=== PATIENT | female | born 1940 | race Caucasian/White ===

== ENCOUNTER 2018-07-22 11:47 | Emergency (ER) | payer MEDICARE ==
[2016-08-16 09:13] VITALS: Wt 81.6 kg
[2018-07-22] MEDS ORDERED: NS(*) 0.9% 1000 ML BAG 1,000 ML IV ONE (11:49)
--- NOTE | 2018-07-22 11:49 | ER Report ---
History and Physical Time Seen By MD: 11:42 HPI/ROS CHIEF COMPLAINT: N/V/D HISTORY OF PRESENT ILLNESS: History is primarily from EMT's as patient is minimally verbal. According to the who should be arriving soon patient has been having fever decreased appetite over the past week or so. Fever began around 7 AM this morning and was followed by 2 episodes of vomiting during which one of the episodes the patient had a brief syncopal episode. She arrives to the emergency department awake and conscious with stable vital signs. Blood sugar in the field was 186 mg/dL. The electronic medical record as of 2013 shows the patient is a full code. Patient apparently is prone to urinary tract infections and is bedridden secondary to Parkinson's disease. Patient's has arrived and additional history is been taken. The actual onset of symptoms was 7 AM this morning. Patient admitted doing well at baseline until then. reports that her normal activities that she is bedridden and requires at least to lift out of bed. She does have some strength to her upper extremities but is primarily verbal. Since 7 AM she is became essentially nonverbal. She will follow some commands and say yes or no but that is about it.. Patient has had a "low-grade temperature" according to the which was treated with Tylenol and Zofran. Patient has had multiple episodes of vomiting today and has been refractory to Zofran. During some of these episodes patient's heart rate becomes bradycardic in the mid 40s. She did have an episode while in the emergency department with a heart rate of approximately 48 bpm monitor showing sinus leora cardia patient had unresponsiveness episode lasting approximately 30-60 seconds. She recovered consciousness spontaneously but remained nonverbal. The reaffirms that currently the patient is full code. REVIEW OF SYSTEMS: Constitutional: Low-grade fever Eyes: Unable to obtain ENT: Unable to obtain Cardiovascular: Unable to obtain Respiratory: Unable to obtain Gastrointestinal: Vomiting Genitourinary: Incontinent of urine Musculoskeletal: Parkinson's disease Skin: No rashes. Neurological: Unable to obtain Allergies: Coded Allergies: oxybutynin (Verified Allergy, Unknown, 08/15/16) sorbitol (Verified Adverse Reaction, Mild, DIARRHEA, 08/15/16) Home Meds Active Scripts Lidocaine (Lidocaine) 5 % Adh..patch, 1-3 ADH.PATCH TOP Q24H PRN for pain, #10 Leave on for 12 hours, but must be off for 12 hours before reapplication Prov:RASHEED CASTANO MD 08/17/16 Ondansetron (ZOFRAN ODT) 4 Mg Tab.rapdis, 4 MG PO Q8H PRN for nausea, #6 TAB.MARCOS Prov:RASHEED CASTANO MD 08/17/16 Amoxicillin (AMOXICILLIN) 500 Mg Capsule, 1 CAP PO TID, #18 CAPSULE Prov:RASHEED CASTANO MD 08/17/16 Pantoprazole Sodium (PANTOPRAZOLE SODIUM) 40 Mg Tablet.dr, 1 TAB PO QDAY, #30 TAB.SR Prov:ALIREZA VINCENT MD 08/16/16 Docusate Sodium (COLACE) 100 Mg Capsule, 100 MG PO BID PRN for CONSTIPATION, #60 CAPSULE Prov:ALIREZA VINCENT MD 08/16/16 Reported Medications Warfarin Sodium (WARFARIN SODIUM) 2.5 Mg Tablet, 3.75 MG PO TuTh 08/16/16 Warfarin Sodium (WARFARIN SODIUM) 2.5 Mg Tablet, 2.5 MG PO SuMoWeFrSa 08/16/16 Carbidopa/Levodopa (SINEMET CR 25-100 TABLET) 1 Each Tablet.er, 1 EACH PO DAILY 08/16/16 Oxygen (OXYGEN) Inha, 3 L INH CONTINUOUS, L 08/15/16 Carbidopa/Levodopa (SINEMET 25-100 MG TABLET) 1 Each Tablet, 1 EACH PO TID 08/15/16 Nystatin 100,000 Unit/Gm Top Powder (NYSTATIN 100,000 UNIT/GM TOP POWDER) 15 Gm Powder, 15 GM TP PRN, TUBE 08/15/16 Lisinopril (LISINOPRIL) 40 Mg Tablet, 40 MG PO BID, TAB 08/15/16 Levothyroxine Sodium (LEVOTHYROXINE SODIUM) 75 Mcg Tablet, 75 MCG PO QDAY, TAB 08/15/16 Gluc/Musa-Msm#2/C/D3/Migue/Born (FCJJGUZYHG-HBDBZLTUWIH-MMZ TAB) 1 Each Tablet, 2 EACH PO QDAY 08/15/16 Acetaminophen (TYLENOL) 325 Mg Tablet, 325 MG PO Q4-6H, TAB 08/15/16 Glimepiride (AMARYL) 1 Mg Tablet, 1 MG PO QDAY 08/15/16 Paroxetine Hcl (PAROXETINE HCL) 10 Mg Tablet, 5 MG PO QDAY 10/04/14 Discontinued Reported Medications Metoprolol Succinate (METOPROLOL SUCCINATE) 25 Mg Tab.er.24h, 0.5 TAB PO BID, TAB 08/16/16 Past Medical/Surgical History past medical history significant for Parkinson's disease, type II diabetes also history of hypertension, hypothyroidism, restrictive lung disease and pulmonary embolism. Patient is bedridden with Parkinson disease and dementia. She's been seen and hospitalized for urosepsis in the past. Hx Smoking: No Smoking Status: Never Smoker Exposure to Second Hand Smoke?: No Hx Substance Use Disorder: No Hx Alcohol Use: Yes Constitutional Vital Sign - Last 24 Hours 07/22/18 07/22/18 07/22/18 07/22/18 11:50 12:00 12:03 12:15 Pulse 75 46 61 Resp 18 23 28 B/P (MAP) 215/98 156/68 (97) 165/84 (111) Pulse Ox 93 92 94 O2 Delivery Nasal Cannula 07/22/18 07/22/18 07/22/18 07/22/18 12:30 12:33 12:45 13:05 Pulse 83 75 Resp 24 33 B/P (MAP) 234/114 (154) 244/115 (158) 250/114 (159) 247/118 (161) Pulse Ox 96 93 07/22/18 07/22/18 07/22/18 13:15 14:07 14:14 Temp 98.2 Pulse 69 Resp 26 B/P (MAP) 193/96 (128) Pulse Ox 90 FiO2 50.0 40.0 Intake and Output 07/22/18 07/22/18 07/23/18 15:00 23:00 07:00 Intake Total 1000 ml Output Total 50 ml Balance 950 ml Physical Exam General/Constitutional: Patient is awake, will respond to commands, nonverbal Head: Normocephalic and atraumatic. Eyes: Conjunctival clear, Pupils are equal and reactive to light. Extraocular muscles are intact and symmetrical. Sclera are clear and anicteric. Ears:External canals are clear. Tympanic membranes are clear with normal landmarks and light reflex. Nares: No rhinorrhea or bleeding. Turbinates are pink and moist. Oropharyngeal: Mucous membranes are dry. There is no pharyngeal erythema or exudate. There are no palatal petechiae. Uvula is midline and symmetrical. Neck: Supple, no adenopathy. Cardiovascular: Heart is regular rate and rhythm without audible murmurs, rubs or gallops. Pulmonary: Lungs are clear to auscultation bilaterally. There are no wheezes, rales, or rhonchi. Chest rise is symmetrical Abdomen: Soft, nontender, no guarding or peritoneal signs. Extremities: No gross deformities, No peripheral cyanosis. Able to move all 4 extremities. Neuro: Alert, patient will track with her eyes and blinks when asked. She is essentially bedridden. Skin: No rashes, skin is warm dry and well perfused. Patient was log rolled and examination back reveals no decubital ulcers or skin breakdown. Medical Decision Making Data Points Result Diagram: 07/22/18 1200 07/22/18 1200 Laboratory Hematology Test 07/22/18 12:00 07/22/18 12:11 Red Blood Count 3.79 M/uL (4.17-5.56) Mean Corpuscular Volume 94.0 fL (80.0-96.0) Mean Corpuscular Hemoglobin 31.0 pg (26.0-33.0) Mean Corpuscular Hemoglobin Concent 33.0 g/dL (32.0-36.0) Red Cell Distribution Width 15.0 % (11.5-14.5) Mean Platelet Volume 8.4 fL (7.2-11.1) Neutrophils (%) (Auto) 83.1 % (39.4-72.5) Lymphocytes (%) (Auto) 12.0 % (17.6-49.6) Monocytes (%) (Auto) 3.2 % (4.1-12.4) Eosinophils (%) (Auto) 1.1 % (0.4-6.7) Basophils (%) (Auto) 0.6 % (0.3-1.4) Nucleated RBC Relative Count (auto) 0.0 /100WBC Neutrophils # (Auto) 7.2 K/uL (2.0-7.4) Lymphocytes # (Auto) 1.0 K/uL (1.3-3.6) Monocytes # (Auto) 0.3 K/uL (0.3-1.0) Eosinophils # (Auto) 0.1 K/uL (0.0-0.5) Basophils # (Auto) 0.1 K/uL (0.0-0.1) Nucleated RBC Absolute Count (auto) 0.00 K/uL Peripheral Blood Smear No Y/N Prothrombin Time 24.9 seconds (12.0-14.4) Prothromb Time International Ratio 2.21 Activated Partial Thromboplast Time 45 seconds (23-35) Sodium Level 139 mmol/L (137-145) Potassium Level 5.0 mmol/L (3.5-5.0) Chloride Level 105 mmol/L (98-107) Carbon Dioxide Level 27 mmol/L (22-31) Blood Urea Nitrogen 32 mg/dl (7-18) Creatinine 0.80 mg/dl (0.52-1.04) Glomerular Filtration Rate Calc > 60.0 Random Glucose 199 mg/dl (75-110) Lactate 1.1 mmol/L (0.7-2.1) Calcium Level 9.5 mg/dl (8.4-10.2) Total Bilirubin 0.3 mg/dl (0.2-1.3) Aspartate Amino Transf (AST/SGOT) 19 U/L (0-35) Alanine Aminotransferase (ALT/SGPT) 10 U/L (0-56) Alkaline Phosphatase 78 U/L (0-126) Troponin I < 0.012 ng/ml B-Type Natriuretic Peptide 152 pg/ml (0-100) Total Protein 6.9 g/dl (6.3-8.2) Albumin 3.6 g/dl (3.5-5.0) Urine Color Yellow Urine Clarity Slightly-cloudy Urine pH 7.0 pH (4.8-9.5) Urine Specific [place] 1.011 Urine Protein 100 mg/dL (NEGATIVE) Urine Glucose (UA) Negative mg/dL (NEGATIVE) Urine Ketones Negative mg/dL (NEGATIVE) Urine Blood Small (NEGATIVE) Urine Nitrite Negative (NEGATIVE) Urine Bilirubin Negative (NEGATIVE) Urine Urobilinogen Negative mg/dL (0.2-1.9) Urine Leukocyte Esterase Moderate (NEGATIVE) Urine RBC 7 /HPF (0-2/HPF) Urine WBC 10 /HPF (0-5/HPF) Urine Squamous Epithelial Cells None /LPF (NONE-FEW) Urine Bacteria Many /HPF (NONE-FEW) Urine Mucus None /HPF (NONE-FEW) Chemistry Test 07/22/18 12:00 07/22/18 12:11 White Blood Count 8.7 k/uL (4.5-11.0) Red Blood Count 3.79 M/uL (4.17-5.56) Hemoglobin 11.8 g/dL (12.0-16.0) Hematocrit 35.7 % (34.0-47.0) Mean Corpuscular Volume 94.0 fL (80.0-96.0) Mean Corpuscular Hemoglobin 31.0 pg (26.0-33.0) Mean Corpuscular Hemoglobin Concent 33.0 g/dL (32.0-36.0) Red Cell Distribution Width 15.0 % (11.5-14.5) Platelet Count 220 K/uL (150-450) Mean Platelet Volume 8.4 fL (7.2-11.1) Neutrophils (%) (Auto) 83.1 % (39.4-72.5) Lymphocytes (%) (Auto) 12.0 % (17.6-49.6) Monocytes (%) (Auto) 3.2 % (4.1-12.4) Eosinophils (%) (Auto) 1.1 % (0.4-6.7) Basophils (%) (Auto) 0.6 % (0.3-1.4) Nucleated RBC Relative Count (auto) 0.0 /100WBC Neutrophils # (Auto) 7.2 K/uL (2.0-7.4) Lymphocytes # (Auto) 1.0 K/uL (1.3-3.6) Monocytes # (Auto) 0.3 K/uL (0.3-1.0) Eosinophils # (Auto) 0.1 K/uL (0.0-0.5) Basophils # (Auto) 0.1 K/uL (0.0-0.1) Nucleated RBC Absolute Count (auto) 0.00 K/uL Peripheral Blood Smear No Y/N Prothrombin Time 24.9 seconds (12.0-14.4) Prothromb Time International Ratio 2.21 Activated Partial Thromboplast Time 45 seconds (23-35) Glomerular Filtration Rate Calc > 60.0 Lactate 1.1 mmol/L (0.7-2.1) Calcium Level 9.5 mg/dl (8.4-10.2) Total Bilirubin 0.3 mg/dl (0.2-1.3) Aspartate Amino Transf (AST/SGOT) 19 U/L (0-35) Alanine Aminotransferase (ALT/SGPT) 10 U/L (0-56) Alkaline Phosphatase 78 U/L (0-126) Troponin I < 0.012 ng/ml B-Type Natriuretic Peptide 152 pg/ml (0-100) Total Protein 6.9 g/dl (6.3-8.2) Albumin 3.6 g/dl (3.5-5.0) Urine Color Yellow Urine Clarity Slightly-cloudy Urine pH 7.0 pH (4.8-9.5) Urine Specific [place] 1.011 Urine Protein 100 mg/dL (NEGATIVE) Urine Glucose (UA) Negative mg/dL (NEGATIVE) Urine Ketones Negative mg/dL (NEGATIVE) Urine Blood Small (NEGATIVE) Urine Nitrite Negative (NEGATIVE) Urine Bilirubin Negative (NEGATIVE) Urine Urobilinogen Negative mg/dL (0.2-1.9) Urine Leukocyte Esterase Moderate (NEGATIVE) Urine RBC 7 /HPF (0-2/HPF) Urine WBC 10 /HPF (0-5/HPF) Urine Squamous Epithelial Cells None /LPF (NONE-FEW) Urine Bacteria Many /HPF (NONE-FEW) Urine Mucus None /HPF (NONE-FEW) Coagulation Test 07/22/18 12:00 Prothrombin Time 24.9 seconds Prothromb Time International Ratio 2.21 Activated Partial Thromboplast Time 45 seconds Urinalysis Test 07/22/18 12:11 Urine Color Yellow Urine Clarity Slightly-cloudy Urine pH 7.0 pH (4.8-9.5) Urine Specific [place] 1.011 Urine Protein 100 mg/dL (NEGATIVE) Urine Glucose (UA) Negative mg/dL (NEGATIVE) Urine Ketones Negative mg/dL (NEGATIVE) Urine Blood Small (NEGATIVE) Urine Nitrite Negative (NEGATIVE) Urine Bilirubin Negative (NEGATIVE) Urine Urobilinogen Negative mg/dL (0.2-1.9) Urine Leukocyte Esterase Moderate (NEGATIVE) Urine RBC 7 /HPF (0-2/HPF) Urine WBC 10 /HPF (0-5/HPF) Urine Squamous Epithelial Cells None /LPF (NONE-FEW) Urine Bacteria Many /HPF (NONE-FEW) Urine Mucus None /HPF (NONE-FEW) EKG/Imaging EKG Interpretation EKG shows sinus bradycardia with a ventricular rate of 50 bpm. Monitor Interpretation: Sinus Bradycardia Imaging [place] [facility] [place] NAME: Lyubov VANCE: 1940 MR: [id number] V: [id number] EXAM DATE: ORDERING PHYSICIAN: ISATU REYES TECHNOLOGIST: Location: [facility] [place] Patient: Lyubov Diaz : 1940 Visit/Account:[id number] Date of Sevice: 07/22/2018 CT Head without contrast Indication: Altered mental status. Comparison: 08/15/2016. Technique: Axial CT images were obtained through the brain from the skull base to the vertex without administration of IV contrast. Reformatted coronal and sagittal images were also obtained. One of the following dose optimization techniques was utilized in the performance of this exam: automated exposure control; adjustment of the mA and/or kV according to the patient's size; or use of an iterative reconstruction technique. Specific details can be referenced in the facility's radiology CT exam operational policy. Findings: Acute subarachnoid hemorrhage is present in the basal cisterns more so on the right side. Layering intraventricular hemorrhage/blood is seen in the dependent portions of the posterior horns of the ventricles. The ventricles are again prominent but unchanged without other intraventricular abnormality and likely due to the cerebral atrophy. No indication of intraparenchymal hemorrhage. No extra-axial fluid collection. No mass effect or midline shift. Age-related cerebral atrophy. Periventricular white matter ischemic changes consistent small vessel disease. [place]ral[place]/white matter differentiation appears normal. Bony structures show no fractures or lesions. The visualized paranasal sinuses and mastoid air cells are clear. IMPRESSION: 1. Prominent subarachnoid hemorrhage in the basal cisterns more so right sided. Layering blood is seen in both posterior horns of the ventricles. 2. The exam otherwise shows senescent changes. I called report to ISATU REYES at 07/22/2018 1:21 PM. Report Dictated By: Jose Cabrera at 07/22/2018 1:15 PM Report E-Signed By: Jose Cabrera at 07/22/2018 1:22 PM WSN:[id number] [place] [facility] [place] NAME: Lyubov Diaz : 1940 MR: [id number] V: [id number] EXAM DATE: ORDERING PHYSICIAN: ISATU REYES TECHNOLOGIST: Location: [facility] [place] Patient: Lyubov Diaz : 1940 Visit/Account:[id number] Date of Sevice: 07/22/2018 Single view of the chest Indication: Chest pain.. Comparison: X-ray examination from July 1999 Findings: Heart size within normal limits. Volumes are low. No current failure, infiltrate, consolidation, effusion or pneumothorax. No acute bony finding. IMPRESSION: 1. Low volumes. No acute finding. Report Dictated By: Yuan Garcia MD at 07/22/2018 12:41 PM Report E-Signed By: Yuan Garcia MD at 07/22/2018 12:42 PM WSN:[id number] ED Course/Re-evaluation Clinical Indication for ER IV: IV Access ED Course 07/22/2018 12:13:42 pm patient with slight decrease of activity according to for concerns of possible infection given report of subjective fevers and decreased appetite. Plan at this time will be cardiac and sepsis workup. 07/22/2018 2:23:36 pm summary of the care. Patient found to have subarachnoid hemorrhage in the basal cisterns more right-sided than left on CT scan. There is layering of blood seen in both posterior horns of the ventricles. Patient having episodes of bradycardia while in the emergency department. She did receive 0.5 mg atropine for a heart rate in the low 40s. This information was discussed with the patient's has power of employee benefits attorney. He would like to be aggressive and do everything we can. We will intubate the patient for dictation of anticipated care with likely admission to the ICU. We will start the patient on blood pressure medication to try to reach a global pressure 160/100. I spoke with Dr. Sauceda from [facility] neurology. He is accepted the patient for transfer we will send the patient by helicopter. Procedure: Rapid sequence intubation. Indication for the procedure was airway protection. The patient was preoxygenated with flush rate 100% oxygen by face mask. The patient was given the following IV medications: 20 mg of etomidate and 40 mg of rocuronium. . The patient was orally endotracheally intubated using the glide scope with a 7.5 ETT. In line stabilization was performed during the procedure. Tracheal intubation was confirmed with misting on the tube; breath sounds were auscultated equally bilaterally; appropriate color change with [place] CO2 detector. Chest X-ray shows ETT in good position at 23 cm at the teeth. The procedure was performed by myself. She was started on a propofol drip for maintenance of sedation. Decision to Disposition Date: Jul 22, 2018 Decision to Disposition Time: 14:38 Depart Departure Latest Vital Signs Vital Signs Date Time Temp Pulse Resp B/P (MAP) Pulse Ox O2 Delivery O2 Flow Rate FiO2 07/22/18 14:14 40.0 07/22/18 13:15 98.2 69 26 193/96 (128) 90 07/22/18 11:50 Nasal Cannula Impression: Primary Impression: Subarachnoid hemorrhage Additional Impression: Hypertensive emergency Condition: Condition Unchanged Disposition: XFER TO [facility] (to Dr Saini at [facility]) Referrals: GELACIO PALACIO DO (PCP) Problem Qualifiers ISATU REYES MD Jul 22, 2018 11:49
[2018-07-22 12:18] LABS: PLATELET COUNT, AUTOMATED 220 K/uL (150-450)
[2018-07-22 12:21] LABS: INR 2.21
--- NOTE | 2018-07-22 12:26 | EKG ---
FACILITY: [facility] PATIENT NAME: BECKY GRIMES : [id number] MR: [id number] V: [id number] EXAM DATE: ORDERING PHYSICIAN: ISATU REYES TECHNOLOGIST: Test Reason : N/V Blood Pressure : / mmHG Vent. Rate : 051 BPM Atrial Rate : 051 BPM P-R Int : 204 ms QRS Dur : 078 ms QT Int : 426 ms P-R-T Axes : 059 015 065 degrees QTc Int : 392 ms Sinus bradycardia Septal infarct (cited on or before 15-AUG-2016) Abnormal ECG When compared with ECG of 15-AUG-2016 20:24, Vent. rate has decreased BY 26 BPM Questionable change in initial forces of Anterior leads Confirmed by LÁZARO CROCKER ([id number]) on 07/22/2018 6:33:17 PM Referred By: Confirmed By:LÁZARO CROCKER
[2018-07-22] MEDS ORDERED: LABETALOL HCL 20 MG/4 ML SYR IVP ONE ×2 (12:45→13:30)
--- NOTE | 2018-07-22 12:45 | RADIOLOGY IMAGING REPORT ---
FACILITY: [facility] PATIENT NAME: Lyubov Diaz : 1940 MR: [id number] V: [id number] EXAM DATE: ORDERING PHYSICIAN: ISATU REYES TECHNOLOGIST: Location: [facility] Patient: Lyubov Diaz : 1940 Visit/Account:[id number] Date of Sevice: 07/22/2018 Single view of the chest Indication: Chest pain.. Comparison: X-ray examination from July 1999 Findings: Heart size within normal limits. Volumes are low. No current failure, infiltrate, consolidation, effusion or pneumothorax. No acute rajni ny finding. IMPRESSION: 1. Low volumes. No acute finding. Report Dictated By: Yuan Garcia MD at 07/22/2018 12:41 PM Report E-Signed By: Yuan Garcia MD at 07/22/2018 12:42 PM WSN:[id number]
[2018-07-22] MEDS ORDERED: LABETALOL HCL 25 MG/5 ML SYRINGE IVP ONE ×2 (12:50→13:35)
--- NOTE | 2018-07-22 13:26 | RADIOLOGY IMAGING REPORT ---
FACILITY: [facility] PATIENT NAME: Lyubov Diaz : 1940 MR: [id number] V: [id number] EXAM DATE: ORDERING PHYSICIAN: ISATU REYES TECHNOLOGIST: Location: [facility] Patient: Lyubov Diaz : 1940 Visit/Account:[id number] Date of Sevice: 07/22/2018 CT Head without contrast Indication: Altered mental status. Comparison: 08/15/2016. Technique: Axial CT images were obtained through the brain from the skull base to the vertex without administration of IV contrast. Reformatted coronal and sagittal images were also obtained. One of the following dose optimization techniques was utilized in the performance of this exam: autom ated exposure control; adjustment of the mA and/or kV according to the patient's size; or use of an i terative reconstruction technique. Specific details can be referenced in the facility's radiology CT exam operational policy. Findings: Acute subarachnoid hemorrhage is present in the basal cisterns more so on the right side. Layering in traventricular hemorrhage/blood is seen in the dependent portions of the posterior horns of the ventr icles. The ventricles are again prominent but unchanged without other intraventricular abnormality an d likely due to the cerebral atrophy. No indication of intraparenchymal hemorrhage. No extra-axial fluid collection. No mass effect or midline shift. Age-related cerebral atrophy. Periv entricular white matter ischemic changes consistent small vessel disease. [place]/white matter different iation appears normal. Bony structures show no fractures or lesions. The visualized paranasal sinuses and mastoid air cells are clear. IMPRESSION: 1. Prominent subarachnoid hemorrhage in the basal cisterns more so right sided. Layering blood is see n in both posterior horns of the ventricles. 2. The exam otherwise shows senescent changes. I called report to ISATU REYES at 07/22/2018 1:21 PM. Report Dictated By: Jose Cabrera at 07/22/2018 1:15 PM Report E-Signed By: Jose Cabrera at 07/22/2018 1:22 PM WSN:[id number]
[2018-07-22] MEDS ORDERED: ATROPINE SUL 1 MG/ML VIAL ONE (13:38)
[2018-07-22] MEDS ORDERED: ATROPINE SUL 0.1MG/ML 10ML SYR IVP ONE (13:40)
[2018-07-22] MEDS ORDERED: ROCURONIUM BROM 10 MG/ML 10 ML IVP ONE (13:40)
[2018-07-22] MEDS ORDERED: ETOMIDATE 20 MG/10 ML VIAL IVP ONE (13:40)
[2018-07-22] MEDS ORDERED: PROPOFOL(*)1000 MG/100 ML VIAL 100 ML IV PRN (14:05)
[2018-07-22] MEDS ORDERED: NICARDIPINE(*) 20MG/NS 200 ML 200 ML IV ONE (14:15)
--- NOTE | 2018-07-22 14:31 | RADIOLOGY IMAGING REPORT ---
FACILITY: [facility] PATIENT NAME: Lyubov Diaz : 1940 MR: [id number] V: [id number] EXAM DATE: ORDERING PHYSICIAN: ISATU REYES TECHNOLOGIST: Location: [facility] [place] Patient: Lyubov Diaz : 1940 Visit/Account:[id number] Date of Sevice: 07/22/2018 Exam type: CHEST SINGLE AP History: Post tube placement Comparison: Earlier same day. Findings: Patient has been intubated and the ET tube is 3 centers above the alona. There is mild bibasilar consolidation with low lung volumes. No pleural effusion or pneumothorax. Heart size appears upper limits of normal. The osseous structures are unremarkable. IMPRESSION: 1. ET tube is 3 cm above the alona. 2. Low lung volumes with mild bibasilar atelectasis or consolidation, unchanged. Report Dictated By: Jose Cuadra MD at 07/22/2018 2:25 PM Report E-Signed By: Jose Cuadra MD at 07/22/2018 2:27 PM WSN:[id number]
[2018-07-22] MEDS ORDERED: PHYTONADIONE 10 MG/ML AMP ONE (14:58)
[2018-07-22] MEDS ORDERED: PHYTONADIONE 10 MG/ML AMP IM ONE (15:00)
[2018-07-22 15:09] VITALS: BP 120/83
--- NOTE | 2018-07-22 19:01 | EKG ---
FACILITY: [facility] [place] PATIENT NAME: BECKY GRIMES : [id number] MR: [id number] V: [id number] EXAM DATE: ORDERING PHYSICIAN: ISATU REYES TECHNOLOGIST: Test Reason : Repeat- post intubation Blood Pressure : / mmHG Vent. Rate : 099 BPM Atrial Rate : 099 BPM P-R Int : 216 ms QRS Dur : 082 ms QT Int : 362 ms P-R-T Axes : 079 020 213 degrees QTc Int : 464 ms Sinus rhythm with 1st degree AV block with premature supraventricular complexes Septal infarct (cited on or before 15-AUG-2016) ST changes inferiorally and laterally suggests ischemia/possible digitalis effect When compared with ECG of 22-JUL-2018 11:53, premature supraventricular complexes are now present Vent. rate has increased BY 48 BPM T wave inversion now evident in Inferior leads QT has lengthened but still within normal limits. Confirmed by SANGEETA SOLIS ([id number]) on 07/22/2018 8:37:37 PM Referred By: Confirmed By:SANGEETA SOLIS
== END 2018-07-22 15:19 | disposition short-term general hospital (02) ==
LOC: ER 11:52
DX: I60.9 Nontraumatic subarachnoid hemorrhage, unspecified (principal); I16.1 Hypertensive emergency; R41.82 Altered mental status, unspecified; I44.0 Atrioventricular block, first degree; R00.1 Bradycardia, unspecified; J98.11 Atelectasis; R07.9 Chest pain, unspecified
CPT/HCPCS: 31500; 36415; 70450; 71045; 81001; 83605; 83880; 84484; 85025; 85610; 85730; 86900; 86901; 93005; 94002; 94770; 96365; 96366; 96372; 96375; 99285; J0461; J2704; J3430; J3490; J7030; P9059; 82040; 82247; 82310; 82374; 82435; 82565; 82947; 84075; 84132; 84155; 84295; 84450; 84460; 84520

== ENCOUNTER → 2018-07-22 | Outpatient (REF) ==
[2016-08-16 09:13] VITALS: BMI 32.5
[~2018-07-22] MED LIST: ACET-1966 PO; ACET-2031 PO; AMO500 PO; AMOX-362 PO; ATOR10TA65 PO; CARB-124 PO; CARB-71 PO; CEP500 PO; CIPR-344 PO; DOC100 PO; DOCU-202 PO; DOCU-416 PO; EST3 PO; FUR20 PO; FURO-45 PO; GLIM1TAB24 PO; GLIM2TAB42 PO; GLIM4TAB49 PO; GLUC-125 PO; LEVO-3 PO; LEVO75TA73 PO; LID5T TOP; LIDO700A19 TOP; LIS20 PO; LISI-362 PO; LISI-374 PO; LISI1TAB2 PO; LISI20TA29 PO; METF-420 PO; METO-221 PO; METO-253 PO; METO25TA23 PO; METO25TA93 PO; METXR500 PO; MOM PO; NAP250 PO; NYST15PO4 TP; ONDA4TAB PO; OXYGENHOME INH; PANT40TA65 PO; PARO-46 PO; PARO10TA80 PO; PARO25TA18 PO; PATCH REMOVAL; PIOG15TA67 PO; POLY17PO PO; POTA-53 PO; POTA10CA40 PO; POTA10CA61 PO; RIS1 PO; RISP-29 PO; RISP0.2563 PO; WAR25 PO; WAR5 PO; WARF10TA29 PO; WARF2.5T11 PO; WARF5TAB23 PO; [UNRECOGNIZED DRUG - CODE] PO; [UNRECOGNIZED DRUG - CODE] PO; [UNRECOGNIZED DRUG - CODE] PO; [UNRECOGNIZED DRUG - OTHER]
== END ==
LOC: AMB 14:08
PROVIDERS: ATTEND Nurse Practitioner
DX: Z02.9 Encounter for administrative examinations, unspecified (principal)

== ENCOUNTER → 2018-07-22 | Outpatient (CLI) | payer MEDICARE ==
[2016-08-16 09:13] VITALS: BMI 32.5
== END ==
LOC: AMB 11:14
PROVIDERS: ATTEND Nurse Practitioner
DX: R11.2 Nausea with vomiting, unspecified (principal); R50.9 Fever, unspecified; R53.1 Weakness; E10.65 Type 1 diabetes mellitus with hyperglycemia
CPT/HCPCS: A0425; A0427